=== PATIENT | male | born 1985 | race Caucasian/White ===

== ENCOUNTER → 2017-07-10 | Outpatient (CLI) | payer SELFPAY ==
[~2017-07-10] VITALS: Ht 170.2 cm; Wt 104.8 kg
[~2017-07-10] MED LIST: BACTDSB PO; LIDOCAINE HCL 2% 5 ML JELLY TP ONE
[2017-07-10 08:18] VITALS: BP 142/90
== END | disposition home or self-care (01) ==
LOC: HBOWC 07:42
PROVIDERS: ATTEND Emergency Medicine
DX: L97.311 Non-pressure chronic ulcer of right ankle limited to breakdown of skin (principal); I10 Essential (primary) hypertension; E66.9 Obesity, unspecified; Z68.33 Body mass index [BMI] 33.0-33.9, adult
CPT/HCPCS: 87070; 87205; 97597

== ENCOUNTER → 2017-07-17 | Outpatient (CLI) | payer SELFPAY ==
[~2017-07-17] MED LIST changes: -LIDOCAINE HCL 2% 5 ML JELLY TP ONE
[2017-07-17 08:26] VITALS: BP 148/78
== END | disposition home or self-care (01) ==
LOC: HBOWC 07:56
PROVIDERS: ATTEND Emergency Medicine
DX: I87.2 Venous insufficiency (chronic) (peripheral) (principal); L97.811 Non-pressure chronic ulcer of other part of right lower leg limited to breakdown of skin; Z68.33 Body mass index [BMI] 33.0-33.9, adult; E66.9 Obesity, unspecified; I10 Essential (primary) hypertension